=== PATIENT | male | born 1945 | race Caucasian/White ===

== ENCOUNTER 2024-08-08 06:00 | Day surgery (SDC) | payer MEDICARE, OTHER ==
[~2024-08-08 06:00] MED LIST: Midazolam 1 MG/ML 2 ML SDV IVPUSH ONE; Sodium Chloride 0.9% 10 ML Syringe FLUSH PRN; Sodium Chloride 0.9% 10 ML Syringe FLUSH SCH
[2024-08-08] MEDS ORDERED: Sodium Chloride 0.9% 100 ML IV ONE (06:01)
[2024-08-08] MEDS: Lactated Ringers 1,000 ML IV SCH (06:20)
[2024-08-08] MEDS ORDERED: Midazolam 1 MG/ML 2 ML SDV ONE (06:32)
[2024-08-08] MEDS ORDERED: Propofol 200 MG/20 ML SDV ONE (06:32)
[2024-08-08] MEDS ORDERED: Glycopyrrolate 0.2 MG/ML 2 ML SDV ONE (07:26)
[2024-08-08] MEDS ORDERED: ceFAZolin 2 GM Vial ONE (07:50)
[2024-08-08] MEDS ORDERED: Phenylephrine 1% 10 MG/ML SDV ONE (07:50)
[2024-08-08] MEDS ORDERED: Bupivacaine 0.75%/D5W 2 ML Amp ONE (07:50)
[2024-08-08] MEDS: Morphine 8 MG, EPINEPHrine 0.3 MG, Cefuroxime 750 MG, Ketorolac 30 MG, Sodium Chloride ... PRN (08:01)
[2024-08-08] MEDS: VANCOmycin 1 GM SDV ONE (08:01)
[2024-08-08] MEDS: Tranexamic Acid 1,000 MG/10 ML Vial ONE (08:01)
[2024-08-08] MEDS: Acetaminophen/HYDROcodone 325-5 MG Tab PO PRN (10:15)
== END 2024-08-08 16:15 | disposition home or self-care (01) ==
LOC: JD.SDS 06:00
PROVIDERS: ATTEND Orthopaedic Surgery
DX: M16.12 Unilateral primary osteoarthritis, left hip (principal); I10 Essential (primary) hypertension; E78.2 Mixed hyperlipidemia; N32.0 Bladder-neck obstruction; N40.1 Benign prostatic hyperplasia with lower urinary tract symptoms; Z87.891 Personal history of nicotine dependence; Z79.899 Other long term (current) drug therapy; Z88.8 Allergy status to other drugs, medicaments and biological substances
CPT/HCPCS: 0055T; 27130; 73501; 97110; 97116; 97161; 97530; A9270; C1713; C1776; J0171; J0690; J0697; J1596; J1885; J2250; J2272; J2371; J2704; J7120; 01214; 99100; J3490